=== PATIENT | male | born 1970 | race Caucasian/White ===

== ENCOUNTER 2017-01-07 19:17 | Observation (INO) ==
[2017-01-07] MEDS ORDERED: 0.9 % Sodium Chloride 1,000 ML IVC ONE ×2 (19:38→22:40)
--- NOTE | 2017-01-07 19:39 | Emergency Department Note ---
Disposition Clinical Impression: Alcoholic intoxication, Abnormal EKG, Cerebral atrophy, Finger injury, Confusion, Lactic acidosis Disposition: Admitted As Inpatient Referrals: NO,PCP [Primary Care Provider] - Forms: ED Satisfaction Letter General Adult HPI - General Chief complaint: ED Alcohol Abuse Stated complaint: ETOH Time Seen by Provider: 01/07/17 19:33 Source: patient Limitations: no limitations - History of Present Illness HPI Narrative: 46-year-old male reports emergency department with his male interpretative dancer. The patient reports he drinks alcohol on a regular basis and did not drink anything this morning. He describes chronic alcoholism and now once to discontinue alcohol consumption. The patient's male interpretative dancer reports the patient is been somewhat confused. He has been "shaky" but describes no seizure like activity or fall. There is no history of headache neck stiffness rash or fever. No difficulty moving the arms or legs independently no unilateral arm weakness or numbness. No chest pain shortness of breath or abdominal pain. There is no history of bleeding of any sort. The patient has had no trouble walking talking hearing seeing or speaking no slurred speech is reported. There is no history of fever. The patient denies any major medical problems. He complains of left thumb pain, he reports he ran over his left thumb with "his truck" about 12 days ago. He states he went to a [facility] and had 8 stitches placed in his thumb. There is no history of bleeding or. On discharge from any wound on the thumb. There is no history of coldness blueness numbness or weakness of the fingers arms or legs. No history of acute back pain skin rash or any other acute complaint or concern. There is no history of drug overdose or self injurious behavior. The patient and his male interpretative dancer reports he wants "some help" and suggest they want the patient admitted to a detox facility. Pain Scale: 0 - Related Data Allergies Allergy/AdvReac Type Severity Reaction Status Date / Time No Known Allergies Allergy Verified 01/07/17 19:29 Past Medical History - Past Medical History Medical history: Reports: no medical history, other (Chronic alcohol abuse) - Social History Smoking Status: Never smoker Smokeless Tobacco Status: Yes Alcohol use: Reports: heavy, recent Drug use: Reports: none Physical Exam - General Limitations: no limitations General appearance: alert, in no apparent distress - Head Head exam: atraumatic, normocephalic, normal inspection - Eye Eye exam: Present: normal appearance, PERRL, EOMI. Absent: scleral icterus, conjunctival injection, miosis, mydriasis - ENT ENT exam: normal exam, mucous membranes moist, TM's normal bilaterally, normal external ear exam - Neck Neck exam: Present: normal inspection, full ROM, trachea midline. Absent: tenderness - Chest Chest inspection: Present: symmetric chest wall rise. Absent: tenderness - Respiratory Respiratory exam: Present: normal lung sounds bilaterally. Absent: respiratory distress, wheezes, stridor, accessory muscle use, prolonged expiratory phase - Cardiovascular Cardiovascular exam: Present: regular rate, normal rhythm, normal heart sounds - Abdominal Exam Abdominal exam: Present: soft, Non-Tender, normal bowel sounds. Absent: tenderness, distention, guarding, rebound, rigidity - Extremities Exam Extremities exam: Present: normal inspection, full ROM, normal capillary refill. Absent: tenderness, pedal edema, joint swelling, calf tenderness - Expanded Upper Extremity Exam Shoulder exam: Present: full ROM. Absent: tenderness Arm exam: Present: full ROM. Absent: tenderness Elbow exam: Present: normal inspection, full ROM. Absent: tenderness Forearm/Wrist exam: Present: normal inspection, full ROM. Absent: tenderness Hand exam: Present: full ROM, other (Left thumb shows what appears to be a healing wound. No bennett crepitance or blackening of the skin or fluctuance. The left thumb is somewhat tender but shows no evidence of bennett bony or joint defect or evidence of neurovascular or neuromuscular compromise. Digits 2 through 5 on the left hand are supple without evidence of trauma. The right hand is unremarkable. All 4 extremities supple throughout the major joints and are warm and well perfused without cyanosis or evidence of neurovascular or neuromuscular compromise or acute bony defect.). Absent: tenderness - Expanded Lower Extremity Exam Hip/Pelvis exam: Present: full ROM. Absent: tenderness Upper leg exam: Present: full ROM. Absent: tenderness Knee exam: Present: full ROM, other. Absent: tenderness Lower leg exam: Absent: tenderness, Homans' sign Ankle exam: Present: full ROM. Absent: tenderness Neurovascular/Tendon exam: Present: normal capillary refill. Absent: motor deficit, sensory deficit, tendon deficit, extremity cold to touch, pallor - Back Exam Back exam: Present: normal inspection, full ROM. Absent: tenderness, CVA tenderness (R), CVA tenderness (L), vertebral tenderness - Neurological Exam Neurological exam: Present: alert, oriented X3, CN II-XII intact. Absent: motor sensory deficit - Psychiatric Psychiatric exam: Present: normal affect, normal mood - Skin Skin exam: Present: warm, dry, intact, normal color. Absent: rash, cyanosis, diaphoresis, erythema, pallor, mottled Course Vital Signs Temperature 97.9 F 01/07/17 19:27 Pulse Rate 117 01/07/17 19:27 Respiratory Rate 18 01/07/17 19:27 Blood Pressure 122/87 01/07/17 19:27 O2 Sat by Pulse Oximetry 96 01/07/17 19:27 Temperature 97.9 F 01/07/17 19:27 Pulse Rate 82 01/07/17 22:34 Respiratory Rate 16 01/07/17 22:34 Blood Pressure 128/68 01/07/17 22:34 O2 Sat by Pulse Oximetry 98 01/07/17 22:34 Oxygen Delivery Oxygen Delivery Room Air Medical Decision Making - MDM Narrative Medical decision making narrative: The patient appears to be stable at this time, the patient's male interpretative dancer's report the patient has been somewhat confused and had shaking activity but do not describes bennett seizure-like activity. There is concern the patient may be in withdrawal periodically. They do not feel the patient is safe to go home. The patient feels that he is in need of assistance and wants to stop drinking. They feel the patient may benefit from a detox center admission. I reviewed with our charge nurse who stated that [facility] had a detox center. I consulted with our hospitalist who felt the detox center may be able to offer a higher level of care than we can here, but if we were unable to transfer the patient to that center, we could admit the patient here for observation. I consulted with the [facility] oven heater regarding an inquiry on a potential alcohol detox admit, he states their detox program is initiated on the outpatient basis and requires specific screening prior to admission to the detox center as an inpatient, that screening process is not available at this time. I have reconsulted our hospitalist regarding the patient's care, initially he was tachycardic with some ST depressions which may just be rate related, he was given IV fluids and monitored in the ED. Kandy male interpretative dancer came to the hospital and I consulted with the patient and his 2 male companions and they do not feel he is safe to go home, the patient does not feel well enough to go home and prefers to stay at this facility. Based on the patient's history of confusion, shakes, notably elevated alcohol level and CT and laboratory studies consistent with chronic alcohol abuse with potential for significant withdrawal or significant sequela from alcohol withdrawal, I thought it would be appropriate to admit the patient to the hospital. The patient's lactic acid is somewhat elevated, this is likely metabolic versus due to sepsis. He was given fluids, chest x-ray was ordered, blood cultues oredered , a second lactate ordered. There is no clear source for infection and his presentation is not necessarily consistent with meningitis. No headache, nuchal ridgitiy or acute neurologic defect noted. The hospitalist has accepted the patient to their care. The patient is currently stable. - Lab Data Lab results reviewed: Yes I reviewed the patient's lab results. Result diagrams: 01/07/17 20:25 01/07/17 20:25 Lab Results 01/07/17 01/07/17 01/07/17 Range/Units 19:52 19:55 20:25 WBC 4.8 (4.3-11.1) K/mcL RBC 3.48 L (4.19-5.50) M/mcL Hgb 13.0 (12.9-16.9) g/dL Hct 37.3 L (37.5-50.1) % MCV 107.2 H (83.0-100.0) fL MCH 37.4 H (28.0-33.3) pg MCHC 34.9 (31.6-35.5) g/dL RDW 12.8 (11.5-14.5) % Plt Count 146 (140-400) K/mcL MPV 8.7 L (9.4-12.4) fL Immature Gran % 0.4 (0-4) % Seg Neutrophils % 70.5 % Lymphocytes % 23.2 % Monocytes % 4.4 % Eosinophils % 0.0 % Basophils % 1.5 % Neutrophils # 3.4 (1.6-8.9) K/mcL Lymphocytes # 1.1 (0.6-4.6) K/mcL Monocytes # 0.2 (0.0-1.3) K/mcL Eosinophils # 0.0 (0.0-0.6) K/mcL Basophils # 0.1 (0.0-0.2) K/mcL PT (9.4-12.1) Seconds INR Sodium (136-145) mEq/L Potassium (3.5-4.5) mEq/L Chloride (98-109) mEq/L Carbon Dioxide (19-29) mEq/L BUN (8-26) mg/dL Creatinine (0.72-1.25) mg/dL Est GFR ( Amer) (> 60) Est GFR (Non-Af Amer) (> 60) BUN/Creatinine Ratio (6-26) Glucose (70-99) mg/dL Calculated Osmolality (280-300) Lactic Acid (0.5-2.2) mmol/L Calcium (8.6-10.8) mg/dL Phosphorus (2.3-4.7) mg/dL Magnesium (1.6-2.6) mg/dL Total Bilirubin (0.2-1.2) mg/dL Direct Bilirubin (0.0-0.5) mg/dL Indirect Bilirubin (0.0-1.2) mg/dL AST (5-34) Units/L ALT (0-55) Units/L Alkaline Phosphatase (38-126) Units/L Troponin I (0-0.03) ng/mL C-Reactive Protein (Less than 5) mg/L Serum Total Protein (6.0-8.3) g/dL Albumin (3.5-5.0) g/dL Globulin (2.4-3.5) g/dL Albumin/Globulin Ratio (1.1-2.2) Lipase (8-78) Units/L Urine Color Yellow (Yellow) Urine Clarity Clear (Clear) Urine pH 6.0 (5.0-8.0) pH Units Ur Specific [place] 1.008 L (1.010-1.025) Urine Protein Negative (Neg-Trace) mg/dL Urine Glucose (UA) Normal (Normal) mg/dL Urine Ketones Trace H (Negative) mg/dL Urine Blood Negative (Negative) Urine Nitrite Negative (Negative) Urine Bilirubin Negative (Negative) Urine Urobilinogen Normal (Normal) mg/dL Ur Leukocyte Esterase Negative (Negative) Salicylates (15-30) mg/dL Urine Opiates Screen Negative (Wqyyxz=949) ng/mL Acetaminophen (10-30) mcg/mL Ur Barbiturates Screen Negative (Hhpgte=685) ng/mL Ur Phencyclidine Scrn Negative (Cutoff=25) ng/mL Ur Amphetamines Screen Negative (Vfjlem=6540) ng/mL U Benzodiazepines Scrn Positive H (Ezmlif=283) ng/mL Urine Cocaine Screen Negative (Cutoff= 300) ng/mL U Marijuana (THC) Screen Negative (Cutoff = 50) ng/mL Ethyl Alcohol (0-10) mg/dL 01/07/17 01/07/17 01/07/17 Range/Units 20:25 20:25 20:25 WBC (4.3-11.1) K/mcL RBC (4.19-5.50) M/mcL Hgb (12.9-16.9) g/dL Hct (37.5-50.1) % MCV (83.0-100.0) fL MCH (28.0-33.3) pg MCHC (31.6-35.5) g/dL RDW (11.5-14.5) % Plt Count (140-400) K/mcL MPV (9.4-12.4) fL Immature Gran % (0-4) % Seg Neutrophils % % Lymphocytes % % Monocytes % % Eosinophils % % Basophils % % Neutrophils # (1.6-8.9) K/mcL Lymphocytes # (0.6-4.6) K/mcL Monocytes # (0.0-1.3) K/mcL Eosinophils # (0.0-0.6) K/mcL Basophils # (0.0-0.2) K/mcL PT 9.5 (9.4-12.1) Seconds INR 0.9 Sodium 142 (136-145) mEq/L Potassium 3.8 (3.5-4.5) mEq/L Chloride 104 (98-109) mEq/L Carbon Dioxide 22 (19-29) mEq/L BUN 8 (8-26) mg/dL Creatinine 0.76 (0.72-1.25) mg/dL Est GFR ( Amer) > 60 (> 60) Est GFR (Non-Af Amer) > 60 (> 60) BUN/Creatinine Ratio 11 (6-26) Glucose 158 H (70-99) mg/dL Calculated Osmolality 296 (280-300) Lactic Acid (0.5-2.2) mmol/L Calcium 9.6 (8.6-10.8) mg/dL Phosphorus 3.0 (2.3-4.7) mg/dL Magnesium 1.7 (1.6-2.6) mg/dL Total Bilirubin 0.4 (0.2-1.2) mg/dL Direct Bilirubin 0.1 (0.0-0.5) mg/dL Indirect Bilirubin 0.3 (0.0-1.2) mg/dL AST 96 H (5-34) Units/L ALT 40 (0-55) Units/L Alkaline Phosphatase 72 (38-126) Units/L Troponin I 0.00 (0-0.03) ng/mL C-Reactive Protein 4 (Less than 5) mg/L Serum Total Protein 7.6 (6.0-8.3) g/dL Albumin 4.0 (3.5-5.0) g/dL Globulin 3.6 H (2.4-3.5) g/dL Albumin/Globulin Ratio 1.1 (1.1-2.2) Lipase 40 (8-78) Units/L Urine Color (Yellow) Urine Clarity (Clear) Urine pH (5.0-8.0) pH Units Ur Specific [place] (1.010-1.025) Urine Protein (Neg-Trace) mg/dL Urine Glucose (UA) (Normal) mg/dL Urine Ketones (Negative) mg/dL Urine Blood (Negative) Urine Nitrite (Negative) Urine Bilirubin (Negative) Urine Urobilinogen (Normal) mg/dL Ur Leukocyte Esterase (Negative) Salicylates < 5.0 L (15-30) mg/dL Urine Opiates Screen (Mgsfnn=785) ng/mL Acetaminophen < 1.0 L (10-30) mcg/mL Ur Barbiturates Screen (Jzmfem=051) ng/mL Ur Phencyclidine Scrn (Cutoff=25) ng/mL Ur Amphetamines Screen (Mwimdj=4335) ng/mL U Benzodiazepines Scrn (Qleblu=509) ng/mL Urine Cocaine Screen (Cutoff= 300) ng/mL U Marijuana (THC) Screen (Cutoff = 50) ng/mL Ethyl Alcohol 373 H (0-10) mg/dL 01/07/17 Range/Units 20:25 WBC (4.3-11.1) K/mcL RBC (4.19-5.50) M/mcL Hgb (12.9-16.9) g/dL Hct (37.5-50.1) % MCV (83.0-100.0) fL MCH (28.0-33.3) pg MCHC (31.6-35.5) g/dL RDW (11.5-14.5) % Plt Count (140-400) K/mcL MPV (9.4-12.4) fL Immature Gran % (0-4) % Seg Neutrophils % % Lymphocytes % % Monocytes % % Eosinophils % % Basophils % % Neutrophils # (1.6-8.9) K/mcL Lymphocytes # (0.6-4.6) K/mcL Monocytes # (0.0-1.3) K/mcL Eosinophils # (0.0-0.6) K/mcL Basophils # (0.0-0.2) K/mcL PT (9.4-12.1) Seconds INR Sodium (136-145) mEq/L Potassium (3.5-4.5) mEq/L Chloride (98-109) mEq/L Carbon Dioxide (19-29) mEq/L BUN (8-26) mg/dL Creatinine (0.72-1.25) mg/dL Est GFR ( Amer) (> 60) Est GFR (Non-Af Amer) (> 60) BUN/Creatinine Ratio (6-26) Glucose (70-99) mg/dL Calculated Osmolality (280-300) Lactic Acid 3.4 H (0.5-2.2) mmol/L Calcium (8.6-10.8) mg/dL Phosphorus (2.3-4.7) mg/dL Magnesium (1.6-2.6) mg/dL Total Bilirubin (0.2-1.2) mg/dL Direct Bilirubin (0.0-0.5) mg/dL Indirect Bilirubin (0.0-1.2) mg/dL AST (5-34) Units/L ALT (0-55) Units/L Alkaline Phosphatase (38-126) Units/L Troponin I (0-0.03) ng/mL C-Reactive Protein (Less than 5) mg/L Serum Total Protein (6.0-8.3) g/dL Albumin (3.5-5.0) g/dL Globulin (2.4-3.5) g/dL Albumin/Globulin Ratio (1.1-2.2) Lipase (8-78) Units/L Urine Color (Yellow) Urine Clarity (Clear) Urine pH (5.0-8.0) pH Units Ur Specific [place] (1.010-1.025) Urine Protein (Neg-Trace) mg/dL Urine Glucose (UA) (Normal) mg/dL Urine Ketones (Negative) mg/dL Urine Blood (Negative) Urine Nitrite (Negative) Urine Bilirubin (Negative) Urine Urobilinogen (Normal) mg/dL Ur Leukocyte Esterase (Negative) Salicylates (15-30) mg/dL Urine Opiates Screen (Lsnyao=115) ng/mL Acetaminophen (10-30) mcg/mL Ur Barbiturates Screen (Ldxsjk=475) ng/mL Ur Phencyclidine Scrn (Cutoff=25) ng/mL Ur Amphetamines Screen (Okdhbb=8230) ng/mL U Benzodiazepines Scrn (Rgvnup=056) ng/mL Urine Cocaine Screen (Cutoff= 300) ng/mL U Marijuana (THC) Screen (Cutoff = 50) ng/mL Ethyl Alcohol (0-10) mg/dL - Radiology Data Radiology results reviewed: Yes I reviewed the patient's radiology results.
[2017-01-07] MEDS ORDERED: diazePAM 10 MG/2 ML SYRINGE IVP STA (19:54)
[2017-01-07 20:00] LABS: Bilirubin,Urine Negative (Negative); Blood,Urine Negative (Negative); Clarity,Urine Clear (Clear); Color,Urine Yellow (Yellow); Glucose,Urine (UA) Normal (Normal); Ketones,Urine Trace mg/dL (Negative); Leukocyte Esterase,Urine Negative (Negative); Nitrite,Urine Negative (Negative); Protein,Urine Negative (Neg-Trace); Specific Gravity,Urine 1.008 (1.010-1.025); Urobilinogen,Urine Normal (Normal)
[2017-01-07 20:05] LABS: Amphetamine Screen,Urine Negative ng/mL (Cutoff=1000); Barbiturate Screen,Urine Negative ng/mL (Cutoff=200); Benzodiazepines Screen,Urine Positive ng/mL (Cutoff=200); Cannabinoid Screen,Urine Negative ng/mL (Cutoff = 50); Cocaine Screen,Urine Negative ng/mL (Cutoff= 300); Opiate Screen,Urine Negative ng/mL (Cutoff=300); Phencyclidine Screen,Urine Negative ng/mL (Cutoff=25)
[2017-01-07 20:35] LABS: Basophils # 0.1 K/mcL (0.0-0.2); Basophils % 1.5 %; Hematocrit 37.3 % (37.5-50.1); Immature Granulocytes % 0.4 % (0-4); Lymphocytes # 1.1 K/mcL (0.6-4.6); Lymphocytes % 23.2 %; Mean Corpuscular HGB Conc 34.9 g/dL (31.6-35.5); Mean Corpuscular Hemoglobin 37.4 pg (28.0-33.3); Mean Corpuscular Volume 107.2 fL (83.0-100.0); Mean Platelet Volume 8.7 fL (9.4-12.4); Monocytes # 0.2 K/mcL (0.0-1.3); Monocytes % 4.4 %; Neutrophils # 3.4 K/mcL (1.6-8.9); Platelet Count 146 K/mcL (140-400); Red Blood Count 3.48 M/mcL (4.19-5.50); Red Cell Distribution Width 12.8 % (11.5-14.5); Segmented Neutrophils % 70.5 %
[2017-01-07 20:39] LABS: INR 0.9; Prothrombin Time 9.5 Seconds (9.4-12.1)
[2017-01-07 20:50] LABS: Alanine Aminotransferase 40 Units/L (0-55); Albumin/Globulin Ratio 1.1 (1.1-2.2); Alkaline Phosphatase 72 Units/L (38-126); Aspartate Amino Transferase 96 Units/L (5-34); BUN/Creatinine Ratio 11 (6-26); Bilirubin,Direct 0.1 mg/dL (0.0-0.5); Bilirubin,Indirect 0.3 mg/dL (0.0-1.2); Bilirubin,Total 0.4 mg/dL (0.2-1.2); Blood Urea Nitrogen 8 mg/dL (8-26); Calcium 9.6 mg/dL (8.6-10.8); Carbon Dioxide 22 mEq/L (19-29); Chloride 104 mEq/L (98-109); Ethanol 373 mg/dL (0-10); Globulin 3.6 g/dL (2.4-3.5); Glucose 158 mg/dL (70-99); Lipase 40 Units/L (8-78); Magnesium 1.7 mg/dL (1.6-2.6); Osmolality,Calculated 296 (280-300); Sodium 142 mEq/L (136-145); Total Protein 7.6 g/dL (6.0-8.3); eGFR For African Americans > 60 (> 60); eGFR For Non-African Americans > 60 (> 60)
[2017-01-07 20:52] LABS: Potassium 3.8 mEq/L (3.5-4.5)
[2017-01-07 21:05] LABS: C-Reactive Protein 4 mg/L (Less than 5)
[2017-01-07 21:06] LABS: Acetaminophen < 1.0 mcg/mL (10-30); Salicylate < 5.0 mg/dL (15-30)
[2017-01-07] MEDS ORDERED: Naloxone 0.4 MG/ML INJ IVP PRN (23:25)
[2017-01-07] MEDS ORDERED: Ondansetron 4 MG/2 ML VIAL IVP PRN (23:25)
[2017-01-07] MEDS ORDERED: *HR* LORazepam 2 MG/ML VIAL IVP PRN (23:28)
[2017-01-08] MEDS ORDERED: MVI, adult with vitamin K 10 ML in 0.9 % Sodium Chloride 1,000 ML IVC ONE
--- NOTE | 2017-01-08 00:07 | Internal Med History&Physical ---
Date of Encounter: 01/08/17 Time of Encounter: 00:04 Assessment and Plan (1) Alcoholic intoxication Current visit: Yes Status: Acute Alcohol level noted to be 373 Currently AAO x 3 Wishes to be in a detox program and wants to stop drinking will continue CIWA monitoring Ativan as needed/as per the CIWA scores patient at high risk of alcohol withdrawal will receive Banana Bag now and continue NS @ 100cc/hr Folic acid, thiamine supplementation daily social worker palliative care eval requested for detox programs Mildly elevated BP noted, will closely monitor. Added Hydralazine 10mg IVP q6h prn SBP>160 will continue to closely monitor Clear liquid diet and advance as direction aspiration precautions Nutrition consult Initial Lactic acidosis resolved. Qualifiers: Complication of substance-induced condition: uncomplicated Qualified Code(s ): F10.920 - Alcohol use, unspecified with intoxication, uncomplicated (2) Chronic alcohol abuse Current visit: Yes Status: Chronic patient wishes to quit and requests detox services social group worker consultation requested (3) DVT prophylaxis Current visit: Yes Status: Acute Heparin SQ (4) Lactic acidosis Current visit: Yes Status: Resolved Internal Medicine - H&P: HPI Chief complaint: alcohol intoxication Admitted From: Home Plans for Post Hospital Care: Home History of present illness: Mr. Regalado is a 46 year old male with chronic alcohol abuse who is brought in by family for change in mental status. Patient reports of being a heavy drinker and his last drink was earlier this morning. He states he was beginning to get confused with shakiness due to which his family brought him to the hospital. He is currently AAO x 3 and able to provide full history. Reports of drinking heavily on a daily basis for the last few years. States he had 20 beers and a pint of whiskey yesterday. At this time he wishes to quit and states he has tried in the past and has failed. Reports of decrease PO intake and having two episodes of vomiting yesterday. At this time he is resting in bed, appears anxious but denies any acute discomfort. Denies any headache, dizziness, chest pain, sob, abd pain, n/v, fever, or chills. No smoking history reported. Past Med Surg Social Fam HX - Past Medical History Medical history: other - Past Surgical History Surgical History: other - Social History Smoking Status: Never smoker Smokeless Tobacco Status: Yes Alcohol use: heavy, recent Drug use: none - Family History Mother Living Status: Still Living Hx Family Cardiac Disorders: Yes (CABG, valve replacement, HTN) Hx Family Respiratory Disorders: Yes (COPD) Hx Family Cancer: Yes (pt unable to state where) Hx Family GI Disorders: No Hx Family Genitourinary Disorders: No Hx Family Endocrine Disorder: Yes (DM,) Hx Family Musculoskeletal Disorders: No Hx Family Neuromuscular Disorders: No Hx Family Neurologic Disorders: No Hx Family HEENT Disorders: No Hx Family Autoimmune Disorders: No Hx Family Reproductive Disorders: No Hx Family Psychosocial Disorders: No Hx Family Medical Disorders: No Internal Medicine - H&P: Meds Allergies No Known Allergies Allergy (Verified 01/07/17 19:29) All Systems PM: A 10-system review of systems was performed and is negative for pertinent findings except as documented above in the HPI. - Constitutional Constitutional: as per HPI - Constitutional Vitals: Temp Pulse Resp BP Pulse Ox 98 F 82 16 128/68 98 01/07/17 23:10 01/07/17 22:34 01/07/17 23:10 01/07/17 23:10 01/07/17 22:34 General appearance: Present: cooperative, disheveled, A&O X 3, no acute distress , underweight, answers questions appropriately - Head Head exam: Present: atraumatic, normocephalic - Eye Eye exam: Present: conjuntiva pink, sclera anicteric - Respiratory Respiratory exam: Present: CTAB. Absent: respiratory distress, wheezes - Cardiovascular Cardiovascular exam: Present: RRR, +S1, +S2. Absent: diastolic murmur, gallop, rubs, systolic murmur - GI/Abdominal GI/Abdominal exam: Present: normal bowel sounds, soft, no peritoneal signs. Absent: distended, tenderness - Extremities Exam Extremities exam: Present: warm, radial pulses palpable and symetrical. Absent : calf tenderness, pedal edema Additional comments: healing wound on left thumb - Neurological Exam Neurological exam: Present: alert, oriented X3 - Psychiatric Psychiatric exam: Present: normal affect, normal mood Internal Med - H&P Results - Labs CBC & Chem 7: 01/07/17 20:25 01/07/17 20:25
[2017-01-08] MEDS ORDERED: Ketorolac 30 MG/ML VIAL IVP ONE (00:18)
[2017-01-08 04:14] LABS: Basophils # 0.1 K/mcL (0.0-0.2); Basophils % 1.3 %; Eosinophils % 0.5 %; Hematocrit 31.2 % (37.5-50.1); Immature Granulocytes % 0.5 % (0-4); Lymphocytes # 1.4 K/mcL (0.6-4.6); Lymphocytes % 36.9 %; Mean Corpuscular HGB Conc 34.3 g/dL (31.6-35.5); Mean Corpuscular Hemoglobin 37.3 pg (28.0-33.3); Mean Corpuscular Volume 108.7 fL (83.0-100.0); Mean Platelet Volume 9.4 fL (9.4-12.4); Monocytes # 0.3 K/mcL (0.0-1.3); Monocytes % 7.9 %; Neutrophils # 2.1 K/mcL (1.6-8.9); Platelet Count 118 K/mcL (140-400); Red Blood Count 2.87 M/mcL (4.19-5.50); Red Cell Distribution Width 12.8 % (11.5-14.5); Segmented Neutrophils % 52.9 %
[2017-01-08 04:22] LABS: Hemoglobin 10.7 g/dL (12.9-16.9)
[2017-01-08 04:37] LABS: Alanine Aminotransferase 31 Units/L (0-55); Albumin 3.3 g/dL (3.5-5.0); Albumin/Globulin Ratio 1.3 (1.1-2.2); Alkaline Phosphatase 56 Units/L (38-126); Aspartate Amino Transferase 83 Units/L (5-34); BUN/Creatinine Ratio 10 (6-26); Bilirubin,Total 0.4 mg/dL (0.2-1.2); Blood Urea Nitrogen 6 mg/dL (8-26); Carbon Dioxide 24 mEq/L (19-29); Chloride 109 mEq/L (98-109); Globulin 2.6 g/dL (2.4-3.5); Glucose 70 mg/dL (70-99); Magnesium 1.5 mg/dL (1.6-2.6); Osmolality,Calculated 292 (280-300); Phosphorous 3.2 mg/dL (2.3-4.7); Potassium 3.9 mEq/L (3.5-4.5); Sodium 143 mEq/L (136-145); eGFR For African Americans > 60 (> 60); eGFR For Non-African Americans > 60 (> 60)
[2017-01-08 04:39] LABS: Calcium 8.1 mg/dL (8.6-10.8); Total Protein 5.9 g/dL (6.0-8.3)
[2017-01-08] MEDS: *HR* Heparin 5,000 UNIT/ML VIAL SQ SCH ×3 (05:41→21:41)
[2017-01-08] MEDS ORDERED: Pantoprazole 40 MG VIAL IVP SCH (06:30)
[2017-01-08] MEDS ORDERED: Magnesium Sulfate 2 GM in D5% in Water 100 ML IVPB ONE (07:55)
[2017-01-08] MEDS: Thiamine (B-1) 100 MG TABLET PO SCH (08:13)
[2017-01-08] MEDS: Folic Acid 1 MG TABLET PO SCH (08:13)
[2017-01-08] MEDS: *HR* LORazepam 2 MG/ML VIAL IVP PRN ×5 (08:13→20:30)
[2017-01-08] MEDS: 0.9 % Sodium Chloride 1,000 ML IVC SCH ×3 (08:14→18:07)
--- NOTE | 2017-01-08 10:09 | Event Note ---
<vAni Resendiz G - Last Filed: 01/08/17 10:07> Date of Encounter: 01/08/17 Time of Encounter: 10:07 Patient seen and examined at bedside. Presented with alcohol intoxication and a wish to receive treatment for alcohol abuse. Discussed with patient again this morning and he still would like to pursue treatment. He states he feels a little shaky this morning he reports that he has had shakes when discontinuing alcohol before but denies any history of withdrawal seizures. Heart is regular rate and rhythm, no murmurs, rubs, gallops. Lungs clear to auscultation bilaterally. Abdomen soft nontender nondistended with normoactive bowel sounds. No lower extremity edema noted. No tremor noted. Plan: Continue CIWA protocol and monitor for withdrawal symptoms and treat as necessary. herbarium worker been consulted to assist with placement in alcohol detoxification program. Patient denies any other drug use. <Ray Medina P - Last Filed: 01/08/17 17:10> Date of Encounter: 01/08/17 I examined this patient and my medical decision-making was reviewed with the ASSOCIATE LOAN OFFICER/PA/Advanced Practice Nurse/Resident Physician. I agree with the documented findings, disposition and treatment plan as described except to the extent set forth below.
--- NOTE | 2017-01-08 13:06 | Electrocardiograph Report ---
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
[2017-01-09] MEDS: *HR* LORazepam 2 MG/ML VIAL IVP PRN ×5 (01:30→18:00)
[2017-01-09] MEDS: 0.9 % Sodium Chloride 1,000 ML IVC SCH ×2 (05:09→14:07)
[2017-01-09] MEDS: *HR* Heparin 5,000 UNIT/ML VIAL SQ SCH ×3 (06:17→21:21)
[2017-01-09] MEDS: Thiamine (B-1) 100 MG TABLET PO SCH (08:23)
[2017-01-09] MEDS: Folic Acid 1 MG TABLET PO SCH (08:23)
[2017-01-09 09:37] LABS: Alanine Aminotransferase 29 Units/L (0-55); Albumin 3.5 g/dL (3.5-5.0); Albumin/Globulin Ratio 1.2 (1.1-2.2); Alkaline Phosphatase 61 Units/L (38-126); Aspartate Amino Transferase 62 Units/L (5-34); BUN/Creatinine Ratio 6 (6-26); Calcium 9.3 mg/dL (8.6-10.8); Carbon Dioxide 24 mEq/L (19-29); Chloride 102 mEq/L (98-109); Glucose 101 mg/dL (70-99); Osmolality,Calculated 279 (280-300); Potassium 3.5 mEq/L (3.5-4.5); Sodium 136 mEq/L (136-145); Total Protein 6.5 g/dL (6.0-8.3); eGFR For African Americans > 60 (> 60); eGFR For Non-African Americans > 60 (> 60)
[2017-01-09 09:40] LABS: Bilirubin,Total 0.9 mg/dL (0.2-1.2); Blood Urea Nitrogen 4 mg/dL (8-26)
[2017-01-09 09:46] LABS: Basophils # 0.1 K/mcL (0.0-0.2); Basophils % 0.9 %; Eosinophils # 0.1 K/mcL (0.0-0.6); Eosinophils % 0.9 %; Hematocrit 33.2 % (37.5-50.1); Hemoglobin 11.5 g/dL (12.9-16.9); Immature Granulocytes % 0.4 % (0-4); Lymphocytes # 0.9 K/mcL (0.6-4.6); Lymphocytes % 16.3 %; Mean Corpuscular HGB Conc 34.6 g/dL (31.6-35.5); Mean Corpuscular Hemoglobin 36.9 pg (28.0-33.3); Mean Corpuscular Volume 106.4 fL (83.0-100.0); Mean Platelet Volume 9.8 fL (9.4-12.4); Monocytes # 0.4 K/mcL (0.0-1.3); Neutrophils # 3.9 K/mcL (1.6-8.9); Platelet Count 117 K/mcL (140-400); Red Blood Count 3.12 M/mcL (4.19-5.50); Red Cell Distribution Width 12.2 % (11.5-14.5); Segmented Neutrophils % 74.5 %
[2017-01-09] MEDS ORDERED: Acetaminophen 325 MG TABLET PO PRN (13:49)
--- NOTE | 2017-01-09 14:52 | Internal Med Progress Note ---
Date of Encounter: 01/09/17 Time of Encounter: 14:50 - Assessment and plan (1) Alcoholic intoxication Current Visit: Yes Status: Acute Assessment and plan: Currently alert and oriented 3 Multiple admissions in the past for alcohol intoxication/alcohol withdrawal. This time patient is keen to go to rehabilitation. Presently he is getting dosages of Ativan as per [facility] protocol Plan: Advance diet. Continue present close monitoring. make ready worker evaluation for possible placement in rehabilitation. Aspiration precaution Qualifiers: Complication of substance-induced condition: uncomplicated Qualified Code(s ): F10.920 - Alcohol use, unspecified with intoxication, uncomplicated (2) Chronic alcohol abuse Current Visit: Yes Status: Chronic Assessment and plan: Patient claims that he would like to quit alcoholism. (3) DVT prophylaxis Current Visit: Yes Status: Acute Assessment and plan: Heparin Avni decision making: This patient has a [id number] risk of worsening in spite of being on appropriate medication, due to the underlying multiple readmissions for intoxication/withdrawal - Subjective Interval history: Patient seen and examined. Chart reviewed. Patient is comfortably lying in the bed. Denies chest pain, shortness of breath, abdominal pain, dizziness, diarrhea, vomiting or nausea. - Constitutional Vitals: Temp Pulse Resp BP Pulse Ox 97.9 F 64 16 139/98 98 01/09/17 11:20 01/09/17 11:20 01/09/17 11:20 01/09/17 11:20 01/09/17 11:20 General appearance: Present: cooperative, disheveled, A&O X 3, no acute distress , underweight, answers questions appropriately - Head Head exam: Present: atraumatic, normocephalic - Eye Eye exam: Present: PERRL, conjuntiva pink, sclera anicteric Pupils: Present: PERRL - Neck Neck exam general surgery: Present: supple, trachea midline. Absent: lymphadenopathy - Respiratory Respiratory exam: Present: CTAB. Absent: accessory muscle use, rales, rhonchi, wheezes - Cardiovascular Cardiovascular exam: Present: RRR, +S1, +S2. Absent: diastolic murmur, gallop, rubs, systolic murmur - GI/Abdominal GI/Abdominal exam: Present: normal bowel sounds, soft, no peritoneal signs. Absent: distended, tenderness - Extremities Exam Extremities exam: Present: warm, radial pulses palpable and symetrical. Absent : calf tenderness, cyanotic, pedal edema - Neurological Exam Neurological exam: Present: CN II-XII intact, oriented X3, no focal deficits. Absent: pronater drift, facial droop, speech deficit - Skin Skin exam: Present: dry, intact Internal Medicine: Result - Labs CBC & Chem 7: 01/09/17 08:40 01/09/17 08:40 Labs: Short CBC 01/09/17 Range/Units 08:40 WBC 5.3 (4.3-11.1) K/mcL Hgb 11.5 L (12.9-16.9) g/dL Hct 33.2 L (37.5-50.1) % Plt Count 117 L (140-400) K/mcL Neutrophils # 3.9 (1.6-8.9) K/mcL BMP 01/09/17 08:40 Sodium 136 Potassium 3.5 Chloride 102 Carbon Dioxide 24 BUN 4 L Creatinine 0.63 L Glucose 101 H Calcium 9.3 Liver Function 01/09/17 Range/Units 08:40 Total Bilirubin 0.9 D (0.2-1.2) mg/dL AST 62 H (5-34) Units/L ALT 29 (0-55) Units/L Alkaline Phosphatase 61 (38-126) Units/L Albumin 3.5 (3.5-5.0) g/dL - ABG Interpretation ABG results: PT/INR, D-dimer PT 9.5 Seconds (9.4-12.1) 01/07/17 20:25 Consult Discharge Plan - Plan Referrals: NO,PCP [Primary Care Provider] -
[2017-01-10] MEDS: 0.9 % Sodium Chloride 1,000 ML IVC SCH (00:27)
[2017-01-10] MEDS: *HR* LORazepam 2 MG/ML VIAL IVP PRN (04:16)
[2017-01-10 04:19] LABS: Basophils % 0.7 %; Eosinophils % 0.9 %; Hemoglobin 11.6 g/dL (12.9-16.9); Immature Granulocytes % 0.4 % (0-4); Lymphocytes # 1.1 K/mcL (0.6-4.6); Lymphocytes % 23.7 %; Mean Corpuscular HGB Conc 35.2 g/dL (31.6-35.5); Mean Corpuscular Hemoglobin 36.9 pg (28.0-33.3); Mean Corpuscular Volume 105.1 fL (83.0-100.0); Monocytes # 0.3 K/mcL (0.0-1.3); Monocytes % 6.3 %; Neutrophils # 3.1 K/mcL (1.6-8.9); Platelet Count 120 K/mcL (140-400); Red Blood Count 3.14 M/mcL (4.19-5.50)
[2017-01-10 04:37] LABS: Alanine Aminotransferase 29 Units/L (0-55); Albumin 3.5 g/dL (3.5-5.0); Albumin/Globulin Ratio 1.2 (1.1-2.2); Alkaline Phosphatase 59 Units/L (38-126); Aspartate Amino Transferase 58 Units/L (5-34); BUN/Creatinine Ratio 6 (6-26); Bilirubin,Total 0.6 mg/dL (0.2-1.2); Blood Urea Nitrogen 4 mg/dL (8-26); Calcium 9.4 mg/dL (8.6-10.8); Carbon Dioxide 25 mEq/L (19-29); Chloride 105 mEq/L (98-109); Glucose 103 mg/dL (70-99); Osmolality,Calculated 285 (280-300); Potassium 3.4 mEq/L (3.5-4.5); Sodium 139 mEq/L (136-145); Total Protein 6.5 g/dL (6.0-8.3); eGFR For African Americans > 60 (> 60); eGFR For Non-African Americans > 60 (> 60)
[2017-01-10 05:12] LABS: Folate 11.8 ng/mL (7.0-31.4)
[2017-01-10] MEDS: *HR* Heparin 5,000 UNIT/ML VIAL SQ SCH (05:30)
[2017-01-10 07:01] VITALS: BP 126/93
--- NOTE | 2017-01-10 08:32 | Discharge Summary ---
Date of Encounter: 01/10/17 Time of Encounter: 08:30 - Discharge Diagnosis (1) Alcoholic intoxication Priority: Primary Status: Acute Qualifiers: Complication of substance-induced condition: uncomplicated Qualified Code(s ): F10.920 - Alcohol use, unspecified with intoxication, uncomplicated (2) Chronic alcohol abuse Priority: Secondary Status: Chronic (3) Confusion Priority: Secondary Status: Acute (4) DVT prophylaxis Priority: Secondary Status: Acute - Discharge Medications Prescriptions: Folic Acid 1 mg PO DAILY #30 tablet Thiamine (B-1) [Vitamin B-1] 100 mg PO DAILY #30 tablet Home Medications: Paroxetine HCl [Paxil] 10 mg PO DAILY 01/08/17 [History] Folic Acid 1 mg PO DAILY #30 tablet 01/10/17 [Rx] Thiamine (B-1) [Vitamin B-1] 100 mg PO DAILY #30 tablet 01/10/17 [Rx] Allergies/Adverse Reactions: Allergies No Known Allergies Allergy (Verified 01/07/17 19:29) Date of admission: 01/07/17 23:09 Primary care physician: PCP NO Consults: 01/07/17 23:28 Consult to Hoop Punch Operator Helper [CONS] Routine Reason for SW Consult: detox program for alcohol abuse 01/08/17 00:14 Consult to Nutrition [CONS] Routine Comment: Consulting Provider: NUTRITION Reason for Dietary Consult: PO Supplementation Discharging clinician: Ray Medina - Patient Status Disposition: Home, Self-Care Condition: Good Functional capacity at discharge: independent ambulation Overall status at discharge: patient is progressing back to baseline - Discharge Instructions Follow Up With: NO,PCP [Primary Care Provider] - - Diet and Activity Activity: increase activity as tolerated Diet: low fat, low cholesterol Interval History: Mr. Regalado is a 46 year old male with chronic alcohol abuse who is brought in by family for change in mental status. Patient reports of being a heavy drinker and his last drink was earlier this morning. He states he was beginning to get confused with shakiness due to which his family brought him to the hospital. He is currently AAO x 3 and able to provide full history. Reports of drinking heavily on a daily basis for the last few years. States he had 20 beers and a pint of whiskey yesterday. At this time he wishes to quit and states he has tried in the past and has failed. Reports of decrease PO intake and having two episodes of vomiting yesterday. At this time he is resting in bed, appears anxious but denies any acute discomfort. Denies any headache, dizziness, chest pain, sob, abd pain, n/v, fever, or chills Hospital course: Patient was hospitalized upon admission his lactic acid was 3.4. Patient received aggressive IV hydration. His lactic acid was back to within normal limit. Patient's urine toxicology was positive for benzodiazepines. Noted that he Tylenol Cold level was [id number] protocol started. Patient responded well to the treatment plan. Recommended patient rehabilitation as outpatient. Initially patient agreed for rehabilitation. dust box worker gave him appropriate literature to do such for the same. This morning patient told me that he would like to go to [facility] where he will follow-up with his primary care physician and will decide about the rehabilitation. I requested to patient reconsider his decision. Patient is insisting to go to his primary care physician and would like to follow the recommendations from his PCP. Plan: Patient will go to his PCP at [facility]. Prescription given for multivitamins. At the time of discharge patient does not have any questions, concerns, update our recommendation. Patient will be picked up by his family members from hospital around known today. - Time Spent with Patient Total time spent providing and/or coordinating discharge services: - Constitutional Vitals: Temp Pulse Resp BP Pulse Ox 98.2 F 77 16 126/93 99 01/10/17 06:54 01/10/17 06:54 01/10/17 06:54 01/10/17 06:54 01/10/17 06:54 General appearance: Present: cooperative, disheveled, A&O X 3, no acute distress , underweight, answers questions appropriately - Head Head exam: Present: atraumatic, normocephalic - Eye Eye exam: Present: PERRL, conjuntiva pink, sclera anicteric Pupils: Present: PERRL - Neck Neck exam general surgery: Present: supple, trachea midline. Absent: lymphadenopathy - Respiratory Respiratory exam: Present: CTAB. Absent: accessory muscle use, rales, rhonchi, wheezes - Cardiovascular Cardiovascular exam: Present: RRR, +S1, +S2. Absent: diastolic murmur, gallop, rubs, systolic murmur - GI/Abdominal GI/Abdominal exam: Present: normal bowel sounds, soft, no peritoneal signs. Absent: distended, tenderness - Extremities Exam Extremities exam: Present: warm, radial pulses palpable and symetrical. Absent : calf tenderness, cyanotic, pedal edema - Neurological Exam Neurological exam: Present: CN II-XII intact, oriented X3, no focal deficits. Absent: pronater drift, facial droop, speech deficit - Skin Skin exam: Present: dry, intact
[2017-01-10] MEDS: Folic Acid 1 MG TABLET PO SCH (09:24)
[2017-01-10] MEDS: Thiamine (B-1) 100 MG TABLET PO SCH (09:24)
== END 2017-01-10 11:05 | disposition home or self-care (01) ==
LOC: EMEROO 19:17 → 2NENU 19:17
PROVIDERS: ADMIT Internal Medicine; ATTEND Internal Medicine